=== PATIENT | female | born 2000 | race Caucasian/White ===

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

== ENCOUNTER 2022-10-14 17:15 | Inpatient (IN) | payer BC ==
[~2022-10-14 17:15] MED LIST: Iopamidol-370 76% 500 ML 1 ML ONE
[2022-10-14 18:15] LABS: #Lymphocytes 0.7 thou/uL (1.20-3.40); #Neutrophils 12.3 thou/uL (1.40-6.50); %Basophils 0.2 % (0.0-1.0); %Lymphocytes 4.7 % (28.0-48.0); %Monocytes 6.9 % (0.0-4.0); %Neutrophils 88.3 % (31.0-61.0); Hemoglobin 12.2 g/dL (12.0-16.0); Mean Corpuscular HGB CONC 34.3 g/dL (32.0-36.0); Mean Corpuscular Hemoglobin 30.9 pg (25.0-35.0); Mean Corpuscular Volume 90.3 fl (78.0-98.0); Mean Platelet Volume 7.8 fL (7.4-10.4); Platelet Count 270 10x3/uL (130-400); RBC Distribution Width 10.8 % (11.5-14.5); Red Blood Cell (RBC) Count 3.93 mill/uL (4.00-5.20); White Blood Cell (WBC) Count 13.9 10x3/uL (4.8-10.8)
[2022-10-14 18:17] LABS: BHCG - Serum Negative (NEGATIVE); Pregs Control Background? CLEAR/WHITE (CLR/WHITE); Pregs Control Bar Appear? YES (CONTROL BAR)
[2022-10-14 18:30] LABS: ALT (SGPT) 11 U/L (8-55); AST (SGOT) 13 U/L (5-34); Albumin 4.5 g/dL (3.5-5.0); Alkaline Phosphatase 71 U/L (40-100); Anion Gap 11 mmol/L (10-20); BUN (Urea Nitrogen) 13 mg/dL (7.0-18.7); Bilirubin, Total 0.9 mg/dL (0.2-1.2); Calc. Creatinine Clearance 0 mL/min (70-130); Calcium 9.2 mg/dL (7.8-10.44); Carbon Dioxide 25 mmol/L (22-29); Chloride 107 mmol/L (98-107); Estimated GFR 115; Globulin 2.6 g/dL (2.4-3.5); Glucose 105 mg/dL (70-105); Potassium 4.3 mmol/L (3.5-5.1); Protein, Total 7.1 g/dL (6.0-8.3); Sodium 139 mmol/L (136-145)
[2022-10-14] MEDS ORDERED: Morphine 4 MG/ML VIAL ONE ×2 (18:40→22:01)
[2022-10-14] MEDS ORDERED: Ondansetron PF 4 MG/2 ML Vial ONE (18:40)
[2022-10-14] MEDS ORDERED: Ketorolac Tromethamine 30 MG/ML VIAL ONE (18:40)
[2022-10-14 19:42] LABS: Actual Bicarbonate (HCO3v) 21 mEq/L (22-28); Base Excess -4.5 mEq/L (-2.0 to +3.0); Calcium, Ionized (venous) 1.08 mmol/L (1.16-1.32); Chloride (VBG) 108 mmol/L (98-106); Hemoglobin (Hb) 11.3 g/dL (11.7-15.5); Potassium (VBG) 4.14 mmol/L (3.70-5.30); Sodium 138.1 mmol/L (133-146); pH (venous) 7.35 (7.32-7.43)
[2022-10-14 19:58] LABS: SARS-CoV-2 NAA Rapid Test Not Detected (NotDetected)
[2022-10-14 20:37] LABS: Bilirubin Negative (Negative); Blood, Urine 3+ (Negative); Clarity Turbid (Clear); Glucose, Urine (Dipstick) Normal (Negative); Ketone, Urine 20 mg/dL (Negative); Leukocyte Negative Leu/uL (Negative); Nitrite Negative (Negative); Protein, Urine (Dipstick) 30 mg/dL (Neg-Trace); RBC/HPF Greater than 50 HPF (0-3); Squamous Epithelial 0-3 HPF (0-3); pH, Urine 6.5 (5.0-9.0)
[2022-10-14 20:47] LABS: Bacteria/HPF 3+ HPF (None Seen)
[2022-10-14 20:48] LABS: Calcium Oxalate Crystals 1+ HPF (None Seen)
[2022-10-14] MEDS ORDERED: cefTRIAXone\\ROCEPHIN 1 GM VIAL ONE (21:41)
[2022-10-14] MEDS ORDERED: HYDROcodone/Acetaminophen 5/325 mg Tablet PO PRN (22:25)
[2022-10-14] MEDS ORDERED: Ondansetron PF 4 MG/2 ML Vial IVP PRN (22:25)
[2022-10-14] MEDS ORDERED: Acetaminophen 325 MG TAB PO PRN (22:25)
[2022-10-14] MEDS ORDERED: Ondansetron ODT 4 MG TAB PO PRN (22:25)
[2022-10-14] MEDS ORDERED: Morphine 2 MG/ML VIAL SLOW IVP PRN (22:37)
[2022-10-14] MEDS ORDERED: traMADol HCl 50 MG TAB PO PRN (22:38)
[2022-10-15] MEDS: Ketorolac Tromethamine 30 MG/ML VIAL IVP SCH ×5 (00:28→22:58)
[2022-10-15] MEDS: Sodium Chloride 0.9% 1,000 ML IV SCH ×4 (00:32→21:14)
[2022-10-15 00:58] VITALS: BMI 22.5
[2022-10-15 05:08] LABS: #Lymphocytes 1.7 thou/uL (1.20-3.40); #Monocytes 1.2 thou/uL (0.11-0.59); #Neutrophils 9.6 thou/uL (1.40-6.50); %Lymphocytes 13.4 % (28.0-48.0); %Monocytes 9.3 % (0.0-4.0); %Neutrophils 77.3 % (31.0-61.0); Hemoglobin 10.1 g/dL (12.0-16.0); Mean Corpuscular HGB CONC 33.7 g/dL (32.0-36.0); Mean Corpuscular Volume 91.8 fl (78.0-98.0); Mean Platelet Volume 8.1 fL (7.4-10.4); Platelet Count 210 10x3/uL (130-400); RBC Distribution Width 10.8 % (11.5-14.5); Red Blood Cell (RBC) Count 3.27 mill/uL (4.00-5.20); White Blood Cell (WBC) Count 12.4 10x3/uL (4.8-10.8)
[2022-10-15 05:30] LABS: Anion Gap 10 mmol/L (10-20); BUN (Urea Nitrogen) 13 mg/dL (7.0-18.7); Calc. Creatinine Clearance 111 mL/min (70-130); Calcium 7.6 mg/dL (7.8-10.44); Carbon Dioxide 19 mmol/L (22-29); Chloride 111 mmol/L (98-107); Estimated GFR 115; Glucose 112 mg/dL (70-105); Potassium 3.3 mmol/L (3.5-5.1); Sodium 137 mmol/L (136-145)
[2022-10-15] MEDS ORDERED: Potassium Chloride 20 MEQ TAB PO SCH (08:00)
[2022-10-15] MEDS ORDERED: Fentanyl 100 MCG/2 ML VIAL ONE (11:05)
[2022-10-15] MEDS ORDERED: Lidocaine 1% PF 5 ML VIAL ONE (11:06)
[2022-10-15] MEDS ORDERED: Ondansetron PF 4 MG/2 ML Vial ONE (11:06)
[2022-10-15] MEDS ORDERED: Dexamethasone 20 MG/5 ML VIAL ONE (11:06)
[2022-10-15] MEDS ORDERED: PROPOFOL 200 MG/20 ML VIAL ONE (11:06)
[2022-10-15] MEDS ORDERED: Ketorolac Tromethamine 30 MG/ML VIAL ONE (11:06)
[2022-10-15] MEDS ORDERED: Phenazopyridine HCl 95 MG TAB PO PRN (11:41)
[2022-10-15] MEDS ORDERED: Oxybutynin 5 MG TAB ONE (11:46)
[2022-10-15] MEDS ORDERED: Phenazopyridine HCl 100 MG TAB ONE ×2 (11:46→11:47)
[2022-10-15] MEDS ORDERED: HYDROmorphone 0.5 MG/0.5 ML SYRINGE SLOW IVP SCH (13:00)
[2022-10-15] MEDS: HYDROmorphone 2 MG TAB PO PRN ×2 (14:58→19:54)
[2022-10-15] MEDS: Acetaminophen 325 MG TAB PO SCH ×2 (17:27→22:57)
[2022-10-15] MEDS: Oxybutynin 5 MG TAB PO PRN (19:56)
[2022-10-15] MEDS: Docusate 100 MG CAP PO SCH (19:58)
[2022-10-15] MEDS: Phenazopyridine HCl 100 MG TAB PO PRN (20:08)
[2022-10-15] MEDS ORDERED: Doxepin HCl 25 MG CAP PO SCH (21:00)
[2022-10-15] MEDS ORDERED: FLUoxetine HCl 20 MG CAP PO SCH (21:00)
[2022-10-15] MEDS ORDERED: Gabapentin 100 MG CAP PO SCH (21:00)
[2022-10-15] MEDS ORDERED: cefTRIAXone\\ROCEPHIN 1 GM in Sodium Chloride 0.9% 100 ML IVPB SCH (22:00)
[2022-10-16] MEDS: HYDROmorphone 2 MG TAB PO PRN ×2 (04:13→08:26)
[2022-10-16] MEDS: Oxybutynin 5 MG TAB PO PRN (04:18)
[2022-10-16] MEDS: Phenazopyridine HCl 100 MG TAB PO PRN (04:25)
[2022-10-16 05:13] LABS: #Monocytes 0.8 thou/uL (0.11-0.59); #Neutrophils 7.1 thou/uL (1.40-6.50); %Basophils 0.2 % (0.0-1.0); %Eosinophils 0.1 % (0.0-10.0); %Lymphocytes 11.3 % (28.0-48.0); %Monocytes 8.6 % (0.0-4.0); %Neutrophils 79.8 % (31.0-61.0); Hemoglobin 10.3 g/dL (12.0-16.0); Mean Corpuscular HGB CONC 33.2 g/dL (32.0-36.0); Mean Corpuscular Hemoglobin 30.9 pg (25.0-35.0); Mean Platelet Volume 8.5 fL (7.4-10.4); Platelet Count 233 10x3/uL (130-400); Red Blood Cell (RBC) Count 3.32 mill/uL (4.00-5.20); White Blood Cell (WBC) Count 8.9 10x3/uL (4.8-10.8)
[2022-10-16 05:36] LABS: Anion Gap 11 mmol/L (10-20); BUN (Urea Nitrogen) 10 mg/dL (7.0-18.7); Calc. Creatinine Clearance 138 mL/min (70-130); Calcium 8.4 mg/dL (7.8-10.44); Carbon Dioxide 18 mmol/L (22-29); Chloride 113 mmol/L (98-107); Estimated GFR 131; Glucose 119 mg/dL (70-105); Magnesium 1.8 mg/dL (1.7-2.2); Potassium 4.2 mmol/L (3.5-5.1); Sodium 138 mmol/L (136-145)
[2022-10-16] MEDS: Ketorolac Tromethamine 30 MG/ML VIAL IVP SCH ×2 (06:13→11:53)
[2022-10-16] MEDS: Acetaminophen 325 MG TAB PO SCH ×2 (06:14→11:52)
[2022-10-16] MEDS: Docusate 100 MG CAP PO SCH (08:17)
[2022-10-16] MEDS: Sodium Chloride 0.9% 1,000 ML IV SCH (08:17)
[2022-10-16 13:19] VITALS: BP 100/58; TEMP 97.3
== END 2022-10-16 17:00 | disposition home or self-care (01) | DRG 661 ==
LOC: ERS 17:15 → 2SW 22:07
PROVIDERS: ADMIT Student in an Organized Health Care Education/Training Program; ATTEND Internal Medicine
PROC: 4A033R1 Measurement of Arterial Saturation, Peripheral, Percutaneous Approach (ICD-10-PCS; principal; 2022-10-14)
PROC: 0T778DZ Dilation of Left Ureter with Intraluminal Device, Via Natural or Artificial Opening Endoscopic (ICD-10-PCS; 2022-10-15)
DX: N13.6 Pyonephrosis (principal); Z20.822 Contact with and (suspected) exposure to COVID-19; L71.9 Rosacea, unspecified; G90.A Postural orthostatic tachycardia syndrome [POTS]; F41.9 Anxiety disorder, unspecified; F32.A Depression, unspecified; Z79.899 Other long term (current) drug therapy
CPT/HCPCS: 36415; 74177; 74420; 80048; 80053; 81003; 81015; 82805; 83605; 83690; 83735; 84703; 85025; 86140; 87040; 87077; 87081; 87086; 87186; 87430; 96361; 96374; 96375; 96376; C2617; J0696; J1100; J1170; J1885; J1956; J2270; J2405; J2704; J3010; J3490; J7050; Q9967

== ENCOUNTER 2023-06-17 12:55 | Emergency (ER) | payer BC ==
[2023-06-17] MEDS ORDERED: Ketorolac Tromethamine 30 MG/ML VIAL ONE (13:28)
[2023-06-17] MEDS ORDERED: Dexamethasone 10 MG/ML VIAL ONE (13:40)
[2023-06-17 13:50] LABS: #Monocytes 0.4 thou/uL (0.11-0.59); #Neutrophils 2.3 thou/uL (1.40-6.50); %Lymphocytes 33.3 % (21.0-51.0); %Monocytes 9.9 % (0.0-10.0); %Neutrophils 56.6 % (42.0-75.0); Hematocrit 34.5 % (36.0-47.0); Hemoglobin 11.9 g/dL (12.0-16.0); Mean Corpuscular HGB CONC 34.5 g/dL (32.0-36.0); Mean Corpuscular Volume 86.9 fl (78.0-98.0); Mean Platelet Volume 10.2 fL (7.4-10.4); Platelet Count 245 10x3/uL (130-400); RBC Distribution Width 11.9 % (11.5-14.5); Red Blood Cell (RBC) Count 3.97 mill/uL (4.20-5.40); White Blood Cell (WBC) Count 4.1 10x3/uL (4.8-10.8)
[2023-06-17 14:22] LABS: ALT (SGPT) 10 U/L (8-55); AST (SGOT) 14 U/L (5-34); Albumin 4.2 g/dL (3.5-5.0); Alkaline Phosphatase 62 U/L (40-110); Anion Gap 15 mmol/L (10-20); BUN (Urea Nitrogen) 12 mg/dL (7.0-18.7); Bilirubin, Total 0.6 mg/dL (0.2-1.2); Calc. Creatinine Clearance 0 mL/min (70-130); Calcium 8.8 mg/dL (7.8-10.44); Carbon Dioxide 21 mmol/L (22-29); Chloride 108 mmol/L (98-107); Estimated GFR 128; Glucose 79 mg/dL (70-105); Potassium 4.3 mmol/L (3.5-5.1); Protein, Total 6.2 g/dL (6.0-8.3); Sodium 140 mmol/L (136-145)
[2023-06-17 14:45] LABS: Bacteria/HPF None Seen HPF (None Seen); Bilirubin Negative (Negative); Blood, Urine 3+ (Negative); CAUTI Indications for Culture Pelvic or flank pain; Clarity Clear (Clear); Glucose, Urine (Dipstick) Normal (Negative); Ketone, Urine 40 mg/dL (Negative); Leukocyte 25 Leu/uL (Negative); Nitrite Negative (Negative); Protein, Urine (Dipstick) Negative (Neg-Trace); RBC/HPF 0-3 HPF (0-3); Urobilinogen Normal mg/dL (Less than 2); WBC/HPF 0-3 HPF (0-3); pH, Urine 6.5 (5.0-9.0)
[2023-06-17 14:52] LABS: Urine Culture Reflex No No
[2023-06-17] MEDS ORDERED: Acetaminophen 500 MG TAB ONE (17:10)
[2023-06-17 17:31] LABS: Pregnancy Test - Urine (BHCG) Negative (Negative); Pregu Control Background? CLEAR/WHITE (CLR/WHITE); Pregu Control Bar Appear? YES (CONTROL BAR)
== END 2023-06-17 18:15 | disposition home or self-care (01) ==
LOC: ERS 12:55
DX: J18.9 Pneumonia, unspecified organism (principal)
CPT/HCPCS: 71045; 74177; 80053; 81001; 81025; 83605; 83690; 84703; 85025; 86140; 87086; 93005; 96361; 96374; 96375; J1100; J1885; J2270; J2405; J3010